=== PATIENT | male | born 1970 | race Caucasian/White ===

== ENCOUNTER 2016-09-04 11:43 | Emergency (ER) | payer OTHER ==
[2016-09-04 12:03] VITALS: BP 134/83
--- NOTE | 2016-09-04 12:43 | UC ---
Throat Pain/Nasal Junito HPI - HPI Summary HPI Summary: This is an otherwise healthy 45 yo male who presents with a 2-3 day h/o B ear pain, ST and nasal congestion. His daughter is currently sick with strep throat. Denies associated GI symptoms. He has been occasionally chilled. No SOB. Somewhat productive cough. No CP. Associated hoarseness. - History of Current Complaint Chief Complaint: UCRespiratory Stated Complaint: SINUS COMPLAINT - Allergies/Home Medications Allergies/Adverse Reactions: Allergies Allergy/AdvReac Type Severity Reaction Status Date / Time No Known Allergies Allergy Verified 07/04/15 10:56 PMH/Surg Hx/FS Hx/Imm Hx Endocrine History Of: Denies: Diabetes, Thyroid Disease, Hyperthyroidism, Hypothyroidism, Dyslipidemia Cardiovascular History Of: Denies: Cardiac Disorders, Hypertension, Pacemaker/ICD, Myocardial Infarction , Congestive Heart Failure, Atrial Fibrillation, Deep Vein Thrombosis, Bleeding Disorders Respiratory History Of: Denies: COPD, Asthma, Bronchitis, Pneumonia, Pulmonary Embolism GI/ History Of: Reports: Gastroesophageal Reflux - He does not take medication for it. He avoids certain foods to control thi Denies: Ulcer, Gastrointestinal Bleed, Gall Bladder Disease, Kidney Stones, Diverticulitis, Renal Disease, Urosepsis Neurological History Of: Denies: TIA, CVA, Dementia, Seizures, Migraine Psychological History Of: Reports: Anxiety, Depression Denies: Bipolar Disorder, Schizophrenia, Post Traumatic Stress Disorder Cancer History Of: Denies: Lung Cancer, Colorectal Cancer, Breast Cancer, Prostate Cancer, Cervical Cancer Other History Of: HIV - Surgical History Surgical History: None - Family History Known Family History: Positive: Cardiac Disease Family History: Per pt, positive cardiac hx on mother side - Social History Alcohol Use: None Alcohol Amount: 9 months clean Substance Use Type: None Smoking Status (MU): Never Smoked Tobacco Review of Systems Constitutional: Chills Skin: Negative Eyes: Negative ENT: Sore Throat, Ear Ache, Nasal Discharge Respiratory: Cough Cardiovascular: Negative Gastrointestinal: Negative Genitourinary: Negative Motor: Negative Neurovascular: Negative Musculoskeletal: Negative Neurological: Negative Psychological: Negative All Other Systems Reviewed And Are Negative: Yes Physical Exam Triage Information Reviewed: Yes Appearance: Ill-Appearing - mildly Vital Signs: Initial Vital Signs Temp 99.8 F 09/04/16 11:59 Pulse 63 09/04/16 11:59 Resp 18 09/04/16 11:59 BP 134/83 09/04/16 11:59 Pulse Ox 100 09/04/16 11:59 Vital Signs Reviewed: Yes Eyes: Positive: Conjunctiva Clear ENT: Positive: Hearing grossly normal, Pharyngeal erythema - mildly, TMs normal. Negative: Tonsillar swelling, Tonsillar exudate Neck: Positive: Supple, Enlarged Nodes @ - anterior cervical LAD Respiratory: Positive: Chest non-tender, Lungs clear. Negative: Crackles, Rhonchi, Wheezing Cardiovascular: Positive: RRR, No Murmur Abdomen Description: Positive: Nontender, Soft Bowel Sounds: Positive: Present Throat Pain/Nasal Course/Dx - Course Course Of Treatment: This is an otherwise healthy 45 yo male who presented with 2-3 day h/o acute viral symptoms. Exam is essentially benign, c/w URI. Assessment/Plan: Recommend symptomatic care. Specifically recommended use of decongestants. Patient requested work excuse for today and tomorrow which was provided - Differential Dx/Diagnosis Provider Diagnoses: Upper respiratory infection Discharge - Discharge Plan Condition: Stable Disposition: HOME Patient Education Materials: Upper Respiratory Infection (ED) Forms: *Work Release Referrals: Kenny Bullard MD [Primary Care Provider] - Additional Instructions: Activity: As tolerated Instructions: 1. Use decongestants (ie. Benadryl (sedating), Sudafed) 2. Your symptoms will likely last a total of 7-10 days
== END 2016-09-04 12:40 | disposition home or self-care (01) ==
LOC: UCEAST 11:43
DX: J06.9 Acute upper respiratory infection, unspecified (principal)
CPT/HCPCS: 99211; G0463

== ENCOUNTER 2017-02-05 12:00 | Emergency (ER) | payer OTHER ==
[2017-02-05 12:08] VITALS: BP 120/73
--- NOTE | 2017-02-05 12:21 | UC ---
Complaint Male HPI - HPI Summary HPI Summary: Concerned about a STD has some painful yellow drip from penis. - History of Current Complaint Chief Complaint: UCGU Stated Complaint: PERSONAL COMPLAINT Time Seen by Provider: 02/05/17 12:20 Hx Obtained From: Patient Onset/Duration: Sudden Onset, Lasting Days, Still Present Timing: Constant Severity Initially: Moderate Severity Currently: Moderate Pain Intensity: 5 Pain Scale Used: 0-10 Numeric Location: Penis Character: Burning Aggravating Factor(s): Voiding Alleviating Factor(s): Nothing Associated Signs And Symptoms: Positive: Penile Discharge - Allergies/Home Medications Allergies/Adverse Reactions: Allergies Allergy/AdvReac Type Severity Reaction Status Date / Time No Known Allergies Allergy Verified 07/04/15 10:56 PMH/Surg Hx/FS Hx/Imm Hx Previously Healthy: Yes - Alcohol addiction in recovery Psychological History: Depression Other History Of: HIV - Surgical History Surgical History: None - Family History Known Family History: Positive: Cardiac Disease Family History: Per pt, positive cardiac hx on mother side - Social History Occupation: Employed Full-time Lives: With Family Alcohol Use: None Alcohol Amount: 9 months clean Substance Use Type: None Smoking Status (MU): Never Smoked Tobacco Review of Systems Constitutional: Negative Skin: Negative Eyes: Negative ENT: Negative Respiratory: Negative Cardiovascular: Negative Gastrointestinal: Negative Genitourinary: Dysuria Motor: Negative Neurovascular: Negative Musculoskeletal: Negative Neurological: Negative Psychological: Negative All Other Systems Reviewed And Are Negative: Yes Physical Exam Triage Information Reviewed: Yes Appearance: Well-Appearing, No Pain Distress, Well-Nourished Vital Signs: Initial Vital Signs Temp 99.6 F 02/05/17 12:03 Pulse 86 02/05/17 12:03 Resp 18 02/05/17 12:03 BP 120/73 02/05/17 12:03 Pulse Ox 100 02/05/17 12:03 Vital Signs Reviewed: Yes Eye Exam: Normal Eyes: Positive: Conjunctiva Clear ENT Exam: Normal ENT: Positive: Normal ENT inspection, Hearing grossly normal, Pharynx normal, TMs normal. Negative: Nasal congestion, Nasal drainage, Trismus, Muffled/ hoarse voice Dental Exam: Normal Neck exam: Normal Neck: Positive: Supple, Nontender, No Lymphadenopathy Respiratory: Positive: Chest non-tender, No respiratory distress, No accessory muscle use Cardiovascular Exam: Normal Cardiovascular: Positive: Pulses Normal, Brisk Capillary Refill Musculoskeletal Exam: Normal Musculoskeletal: Positive: Strength Intact, ROM Intact, No Edema Neurological Exam: Normal Neurological: Positive: Alert, Muscle Tone Normal Psychological Exam: Normal Skin Exam: Normal Diagnostics - Laboratory Diagnostic Studies Completed/Ordered: +3 leuks, trace blood Complaint Male Course/Dx - Course Course Of Treatment: labs, Rocephin and Zithromax,[facility] - Differential Dx/Diagnosis Differential Diagnosis/HQI/PQRI: Prostatitis, Ureteral Calculi, Urinary Tract Infection Provider Diagnoses: Dysuria Discharge - Discharge Plan Condition: Stable Disposition: HOME Patient Education Materials: Chlamydia (ED), Safe Sex (ED) Referrals: Kenny Bullard MD [Primary Care Provider] - Additional Instructions: Follow with [facility] this week [phone]
[2017-02-05] MEDS ORDERED: cefTRIAXone VIAL(*) 250 MG VIAL IM ONE (12:36)
[2017-02-05] MEDS ORDERED: Azithromycin TAB* 250 MG PO ONE (12:36)
[2017-02-05] MEDS ORDERED: Lidocaine 1% MPF* 2 ML VIAL ONE (12:42)
[2017-02-05 16:04] LABS: BUN/Creatinine Ratio 13.1 (8-20); Calcium 9.5 mg/dL (8.6-10.3); EGFR African American 127.1 (>60); EGFR Non-African American 98.8 (>60); Potassium 4.3 mmol/L (3.5-5.0)
[2017-02-07 09:27] LABS: Syphilis Index < 0.1 Index
--- NOTE | 2017-02-07 15:12 | ED ---
Course/Dx - Course Course Of Treatment: Lab results came back positive for GC RNA and negative for Chlamydia RNA. Patient treated in clinic 02/05/17 for gonorrhea with rocephin 250mg im and azithromycin 1000mg po. Patient contacted by nursing from clinic. - Diagnoses Provider Diagnoses: Gonorrhea in male
--- NOTE | 2017-02-08 07:56 | UC ---
Progress - Progress Note Progress Note: pt is positive for Hepatits B surface antibody. will follow up with patient to check if he relieved Hepatitis B immunizations or if he is infected with HBV and have pt follow up with his PCP.
== END 2017-02-05 13:16 | disposition home or self-care (01) ==
LOC: UCEAST 12:00
DX: R30.0 Dysuria (principal); F10.21 Alcohol dependence, in remission; F32.9 Major depressive disorder, single episode, unspecified; B20 Human immunodeficiency virus [HIV] disease
CPT/HCPCS: 36415; 80048; 81003; 86592; 86703; 86706; 86708; 86803; 87086; 87340; 87491; 87591; 96372; 99212; A9270-GY; G0463; J0696